=== PATIENT | male | born 1970 | race Caucasian/White ===

== ENCOUNTER 2017-11-02 19:11 | Emergency (ER) | payer OTHER ==
[~2017-11-02] VITALS: Ht 175.3 cm; Wt 95.2 kg
[~2017-11-02 19:11] MED LIST: AMOX875 PO; ARIPIPRAZOLE5 MG PO; Abilify2 MG PO; Ativan1 MG PO; Bactrim Ds Tab1 EACH PO; GABA600 PO; HYDHCL25 PO; IBUP800; Keflex500 MG PO; MELA3 PO; Naprosyn500 MG PO; Norco 5-325 Ta1 EACH PO; OMEP10ER PO; PENVK500 PO; Permethrin60 GM TOP; QUETIAPINE FUM100 MG PO; QUETIAPINE FUM150 MG PO; SULTRIDS PO; TRAM50 PO; TRAZ100 PO; Ultram50 MG PO; VENL75ER PO; VENLAFAXINE HCL75 MG PO; Veetids 500500 MG PO; Vitamin D2000 UNIT PO; ZIPR40 PO; Zofran4 MG PO
[2017-11-02] MEDS ORDERED: QUET25 PO (19:48)
[2017-11-02] MEDS ORDERED: Cheratussin AC118 ML PO (20:18)
[2017-11-02] MEDS ORDERED: ALBU90OI INH (20:18)
[2017-11-02] MEDS ORDERED: BENZ100A PO (20:18)
[2018-01-08] MEDS ORDERED: ALBU90OI INH (08:53)
[2018-01-08] MEDS ORDERED: Carafate1 GM/10 ML PO (10:33)
[2018-01-08] MEDS ORDERED: Zofran Odt8 MG SL (10:33)
[2018-01-08] MEDS ORDERED: Protonix40 MG PO (10:33)
== END 2017-11-02 20:32 | disposition home or self-care (01) ==
LOC: ER 19:11
DX: R05 Cough (principal); F32.9 Major depressive disorder, single episode, unspecified; F17.210 Nicotine dependence, cigarettes, uncomplicated; Z79.899 Other long term (current) drug therapy
CPT/HCPCS: 71046; 94640; 99284

== ENCOUNTER → 2017-12-10 | Outpatient (CLI) | payer OTHER ==
[~2017-12-10] MED LIST changes: +ALBU90OI INH; +BENZ100A PO; +Cheratussin AC118 ML PO; +QUET25 PO
== END ==
LOC: LAB SHORT 11:00 → LAB 11:00
DX: L03.115 Cellulitis of right lower limb (principal)
CPT/HCPCS: 87070; 87075; 87077; 87147; 87186; 87205

== ENCOUNTER → 2018-11-12 | Outpatient (CLI) | payer OTHER ==
[~2018-11-12] MED LIST changes: +Carafate1 GM/10 ML PO; +Protonix40 MG PO; +Zofran Odt8 MG SL
== END | disposition home or self-care (01) ==
LOC: LAB 12:00 → LAB SHORT 12:00
DX: L02.511 Cutaneous abscess of right hand (principal)
CPT/HCPCS: 87070; 87075; 87077; 87147; 87186; 87205